=== PATIENT | female | born 1980 | race Caucasian/White ===

== ENCOUNTER 2024-01-23 18:10 | Inpatient (IN) | payer OTHER, SELFPAY ==
--- NOTE | ~2024-01-23 | US_ITS ---
EXAMINATION: US RETROPERITONEAL LIMITED (RENAL ONLY) CLINICAL INFORMATION: Left lower quadrant pain. COMPARISON: None available. TECHNIQUE: Bilateral renal and bladder ultrasound FINDINGS: RIGHT KIDNEY: 11.6 x 5.8 x 5.5 cm (SAG x AP x TRV). The kidney is normal in size, contour, and echogenicity. Renal cortical thickness is normal. No calculi or focal parenchymal lesions. No hydronephrosis. LEFT KIDNEY: 12.6 x 6.6 x 5.8 cm (SAG x AP x TRV). The kidney is normal in size, contour, and echogenicity. Renal cortical thickness is normal. No calculi or focal parenchymal lesions. No hydronephrosis. Prevoid bladder volume 237. Following voiding, no post void residual. Normal ureteral jets seen bilaterally. US/US renal BI IMPRESSION: Normal renal ultrasound. Electronically signed by: Noah Simmons MD 01/24/2024 04:07 PM EDT
--- NOTE | ~2024-01-23 | US_ITS ---
EXAMINATION: US PELVIS CLINICAL INFORMATION: Left pelvic pain COMPARISON: None available. TECHNIQUE: Ultrasound of the pelvis is performed using both transabdominal and transvaginal transducers along with Doppler. Transvaginal imaging is performed due to inadequate visualization transabdominally. FINDINGS: Uterus: The uterus is anteverted and enlarged measuring 14.1 x 6.0 x 8.3 cm. It is anteverted The double wall endometrial thickness is 15 mm. There is a 3.6 cm anterior myometrial fibroid . No other lesion Adnexa: Both ovaries are visualized. There is normal color flow to the adnexa. There is no ovarian torsion. There is no pelvic ascites or fluid collection. Right ovary measures 8 mL in volume. Left ovary 7 mL in volume. US/US pelvic and transvaginal IMPRESSION: No evidence of any active ovarian torsion. Incidental uterine fibroid. Limited imaging as per technologist. If symptoms persist or worsen consider further imaging: MRI.. Electronically signed by: Noah Simmons MD 01/24/2024 04:03 PM EDT
[2024-01-23 18:41] VITALS: BMI 35.7
[2024-01-23 18:42] VITALS: BP 130/77; PULSE 80; RESP 16; TEMP 36.9; O2SAT 98
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
[2024-01-23 20:00] VITALS: BP 125/69; PULSE 88; RESP 16; TEMP 36.4; O2SAT 97
[2024-01-23] MEDS: Empagliflozin 25 MG TABLET PO (20:51)
[2024-01-23] MEDS: Flu Vacc TS2024-25(6mos up)/PF 0.5 ML SYRINGE IM (20:52)
[2024-01-24 07:38] VITALS: BP 127/80; PULSE 76; RESP 14; TEMP 36.6; O2SAT 98
[2024-01-24] MEDS: Escitalopram Oxalate 10 MG TABLET PO (08:13)
[2024-01-24] MEDS: Empagliflozin 25 MG TABLET PO (08:13)
[2024-01-24] MEDS: Atorvastatin Calcium 20 MG TABLET PO (08:14)
[2024-01-24] MEDS: risperiDONE 0.5 MG TABLET PO (08:14)
[2024-01-24] MEDS: Acetaminophen 325 MG TABLET 650 MG PO ×2 (08:17→21:54)
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
[2024-01-24 12:24] LABS: Syphilis Screen Nonreactive (Nonreactive)
[2024-01-24 12:25] LABS: HBc Num1 0.35 S/CO (0.00-0.79); HBsAGNum1 0.36 S/CO (0.00-0.99); HIV AB/AG Nonreactive (Nonreactive); HIV Num 1 0.06 S/CO (0.00-0.99); Hepatitis B Core Antibody Nonreactive (Nonreactive); Hepatitis B Surface Antigen Negative (Negative); ~HepC Num1 0.33 S/CO (0.00-0.79); ~Hepatitis B Surface Antibody REACTIVE (Nonreactive); ~Hepatitis C Antibody Nonreactive (Nonreactive)
[2024-01-24] MEDS: Lidocaine 4 % Patch ADH..PATCH 1 PATCH TRANSDERMA (12:53)
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
[2024-01-24 15:39] LABS: Estimated Average Glucose 160 mg/dL; Hemoglobin A1c % 7.2 % (<6.0); Total Hemoglobin (HGBA1C) 3725.2846 umol/L
[2024-01-24 17:31] LABS: Bacterial Vaginosis PCR POSITIVE (Negative); Candida Group PCR NOT DETECTED (Not Detect); Candida glab krusei PCR NOT DETECTED (Not Detect); Trichomonas vaginalis PCR NOT DETECTED (Not Detect)
[2024-01-24 17:39] LABS: Appearance Urine Clear; Color Urine Yellow; Glucose Urine UA >=1000 mg/dL (Negative); Leukocyte Esterase Urine Negative (Negative); Nitrite Urine Negative (Negative); PH 5.5 (5.0-9.0); Specific Gravity - Urine >= 1.030 (1.005-1.025); UMIC TRIGGER UACC YES; Urine Blood Negative (Negative); Urine Ketones Negative (Negative); Urine Protein Negative (Neg-Trace)
[2024-01-24 18:00] LABS: Bacteria Urine None Seen (None Seen); Hyaline Casts Urine 0-2 /LPF (0-2); RBC Urine 0-2 /HPF (0-2); WBC Urine 0-5 /HPF (0-5)
[2024-01-24 18:04] LABS: CT PCR NOT DETECTED (Not Detect.); NG PCR NOT DETECTED (Not Detect.)
[2024-01-24 20:00] VITALS: BP 185/93; PULSE 86; RESP 16; TEMP 36.3; O2SAT 99
[2024-01-24] MEDS: Magnesium Hydrox/Alum Hydrox 30 ML ORAL.SUSP PO (20:51)
[2024-01-24 21:06] VITALS: BP 116/59; PULSE 59; RESP 16; O2SAT 99
[2024-01-24] MEDS: risperiDONE 1 MG TABLET PO (21:54)
[2024-01-24] MEDS: methocarbamoL 500 MG TABLET PO (21:55)
[2024-01-24] MEDS: Fluticasone Propionate 100 MCG BLST.W.DEV 1 PUFF INHALE (21:55)
[2024-01-24] MEDS: metroNIDAZOLE 0.75 % Vaginal Gel 70 GM TUBE VAGINAL (21:56)
[2024-01-25 07:00] VITALS: BMI 35.1
[2024-01-25 07:40] VITALS: BP 124/82; PULSE 93; RESP 16; TEMP 36.3; O2SAT 96
[2024-01-25] MEDS: Atorvastatin Calcium 20 MG TABLET PO (08:19)
[2024-01-25] MEDS: risperiDONE 1 MG TABLET PO ×2 (08:19→20:08)
[2024-01-25] MEDS: Fluticasone Propionate 100 MCG BLST.W.DEV 1 PUFF INHALE ×2 (08:20→20:07)
[2024-01-25] MEDS: Empagliflozin 25 MG TABLET PO (08:20)
[2024-01-25] MEDS: Lidocaine 4 % Patch ADH..PATCH 1 PATCH TRANSDERMA (08:21)
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
[2024-01-25 20:00] VITALS: BP 148/76; PULSE 94; RESP 16; TEMP 36.5; O2SAT 99
[2024-01-25] MEDS: methocarbamoL 500 MG TABLET PO (20:09)
[2024-01-25] MEDS: risperiDONE 0.5 MG TABLET PO (20:09)
[2024-01-25] MEDS: Acetaminophen 325 MG TABLET 650 MG PO (20:09)
[2024-01-25] MEDS: metroNIDAZOLE 0.75 % Vaginal Gel 70 GM TUBE VAGINAL (20:29)
[2024-01-26 08:00] VITALS: BP 107/66; PULSE 87; RESP 20; TEMP 36.6; O2SAT 97
[2024-01-26] MEDS: Fluticasone Propionate 100 MCG BLST.W.DEV 1 PUFF INHALE (08:02)
[2024-01-26] MEDS: risperiDONE 1 MG TABLET PO (08:02)
[2024-01-26] MEDS: Atorvastatin Calcium 20 MG TABLET PO (08:02)
[2024-01-26] MEDS: Empagliflozin 25 MG TABLET PO (08:02)
[2024-01-26] MEDS: Lidocaine 4 % Patch ADH..PATCH 1 PATCH TRANSDERMA (08:03)
== END 2024-01-26 11:00 | disposition home or self-care (01) | DRG 885 ==
PROVIDERS: Physician Assistant; Psychiatry & Neurology Psychiatry; Admitting Provider Psychiatry & Neurology Psychiatry; PCP Registered Nurse; Visit Provider Psychiatry & Neurology Psychiatry
DX: F29 Unspecified psychosis not due to a substance or known physiological condition (principal); N76.0 Acute vaginitis; M54.50 Low back pain, unspecified; J45.30 Mild persistent asthma, uncomplicated; E11.9 Type 2 diabetes mellitus without complications; I83.93 Asymptomatic varicose veins of bilateral lower extremities; Z79.84 Long term (current) use of oral hypoglycemic drugs; Z79.899 Other long term (current) drug therapy
CPT/HCPCS: 0352U; 36415; 76775; 76830; 76856; 81001; 83036; 86704; 86706; 86780; 86803; 87340; 87389; 87491; 87591; 90656

== ENCOUNTER → 2024-01-23 18:10 | Outpatient (BNV) | payer OTHER, SELFPAY | PROVIDERS: Admitting Provider Psychiatry & Neurology Psychiatry; PCP Registered Nurse; Visit Provider Physician Assistant | DX: R10.32 Left lower quadrant pain (principal); M54.50 Low back pain, unspecified; E11.8 Type 2 diabetes mellitus with unspecified complications | CPT/HCPCS: 99221 ==

== ENCOUNTER → 2024-01-23 18:10 | Outpatient (BNV) | payer OTHER, SELFPAY | PROVIDERS: Admitting Provider Psychiatry & Neurology Psychiatry; PCP Registered Nurse; Visit Provider Psychiatry & Neurology Psychiatry | DX: F29 Unspecified psychosis not due to a substance or known physiological condition (principal) | CPT/HCPCS: 90792; 99231; 99239 ==